=== PATIENT | female | born 1980 | race Caucasian/White ===

== ENCOUNTER → 2018-11-12 18:53 | Emergency (ER) | payer OTHER ==
--- NOTE | 2018-11-12 19:14 | ED ---
Psychiatric Complaint - HPI Summary HPI Summary: This patient is a 38 year old F brought in by ambulance to ED with a chief complaint of intermittent panic attacks since last month. The patients most recent episode occurred while she was driving about 1 hour ago. The patient states it feels like a panic attack except her previous episodes usually go away , but this one lasted longer than usual. The CC is described as intermittent. The patient rates the pain 0/10 in severity. Symptoms aggravated by nothing. Symptoms alleviated by nothing. Patient reports light-headedness, numbness and tingling in her arms and legs, near-syncope, SOB, and slight sore throat (a couple days ago, now resolved). Patient denies edema, cough, and fever. PMHx of panic attacks (since the age of 17). She does not take any medications. - History Of Current Complaint Time Seen by Provider: 11/12/18 19:01 Hx Obtained From: Patient Onset/Duration: Sudden Onset, Lasting Minutes, Resolved Timing: Intermittent Episode Lasting Severity Currently: None Character: Anxious Aggravating Factor(s): Nothing Alleviating Factor(s): Nothing Related History: Positive For: Prior Psychiatric Issues - panic attacks Has Suicidal: Denies: Thoughts Has Homicidal: Denies: Thoughts - Allergies/Home Medications Allergies/Adverse Reactions: Allergies Allergy/AdvReac Type Severity Reaction Status Date / Time No Known Allergies Allergy Verified 11/12/18 19:01 Home Medications: Home Medications NK [No Home Medications Reported] 11/12/18 [History Confirmed 11/12/18] PMH/Surg Hx/FS Hx/Imm Hx Endocrine/Hematology History: Denies: Hx Diabetes Cardiovascular History: Denies: Hx Coronary Artery Disease, Hx Hypertension Psychiatric History: Reports: Other Psychiatric Issues/Disorders - panic attacks Infectious Disease History: No Infectious Disease History: Denies: Traveled Outside the [place] in Last 30 Days - Family History Known Family History: Positive: Cardiac Disease - father - Social History Alcohol Use: None Substance Use Type: Reports: None Hx Tobacco Use: No Smoking Status (MU): Never Smoked Tobacco Review of Systems Negative: Fever Positive: Sore Throat - now resolved Positive: Shortness Of Breath. Negative: Cough Negative: Edema Neurological: Other - light-headedness, numbness and tingling in arms and legs, near-syncope Positive: Numbness Positive: Anxious, Other - panic attacks All Other Systems Reviewed And Are Negative: Yes Physical Exam - Summary Physical Exam Summary: VITAL SIGNS: Reviewed. GENERAL: Patient is a well-developed and nourished FEMALE who is lying comfortable in the stretcher. Patient is not in any acute respiratory distress. HEAD AND FACE: No signs of trauma. No ecchymosis, hematomas or skull depressions. No sinus tenderness. EYES: PERRLA, EOMI x 2, No injected conjunctiva, no nystagmus. EARS: Hearing grossly intact. Ear canals and tympanic membranes are within normal limits. MOUTH: Oropharynx within normal limits. NECK: Supple, trachea is midline, no adenopathy, no JVD, no carotid bruit, no c- spine tenderness, neck with full ROM. CHEST: Symmetric, no tenderness at palpation LUNGS: Clear to auscultation bilaterally. No wheezing or crackles. CVS: Regular rate and rhythm, S1 and S2 present, no murmurs or gallops appreciated. ABDOMEN: Soft, non-tender. No signs of distention. No rebound no guarding, and no masses palpated. Bowel sounds are normal. EXTREMITIES: FROM in all major joints, no edema, no cyanosis or clubbing. NEURO: Alert and oriented x 3. No acute neurological deficits. Speech is normal and follows commands. SKIN: Dry and warm PSYCH: Patient is anxious. Triage Information Reviewed: Yes Vital Signs On Initial Exam: Initial Vitals Temp Pulse Resp BP Pulse Ox 99.3 F 86 18 118/93 100 11/12/18 18:58 11/12/18 18:58 11/12/18 18:58 11/12/18 18:58 11/12/18 18:58 Vital Signs Reviewed: Yes Diagnostics - Vital Signs Vital Signs Temp Pulse Resp BP Pulse Ox 11/12/18 18:58 99.3 F 86 18 118/93 100 - Laboratory Result Diagrams: 11/12/18 19:38 11/12/18 19:38 Lab Statement: Any lab studies that have been ordered have been reviewed, and results considered in the medical decision making process. - EKG 1928 Cardiac Rate: NL - 85 BPM EKG Rhythm: Sinus Rhythm Summary of EKG Findings: NSR at 85 BPM, no ST elevations, and normal axis. Re-Evaluation - Re-Evaluation First Eval Re-Evaluation Time: 20:52 Comment: Discussed results with the patient and plan for discharge. Patient understands and agrees with this plan. Course/Dx - Course Assessment/Plan: This patient is a 38 year old F brought in by ambulance to ED with a chief complaint of intermittent panic attacks since last month. The patients most recent episode occurred while she was driving about 1 hour ago. The patient states it feels like a panic attack except her previous episodes usually go away, but this one lasted longer than usual. The CC is described as intermittent. The patient rates the pain 0/10 in severity. Symptoms aggravated by nothing. Symptoms alleviated by nothing. Patient reports lightheadedness, numbness and tingling in her arms and legs, near-syncope, SOB, and slight sore throat (a couple days ago, now resolved). Patient denies edema, cough, and fever. PMHx of panic attacks (since the age of 17). She does not take any medications. Blood Work without any significant abnormality except for glucose of 1 5. Troponin is 0.00. Beta hCG is negative. EKG is a normal sinus rhythm without any ST elevations. I believe that the patient had another panic attack as her usual however this was lasting a little bit longer. Patient declined any medications for anxiety. I discussed all the findings and test results with the patient. Patient was instructed to return to the emergency room immediately if any of the symptoms return worsens. Plan of care was discussed with the patient and understands and agrees. All questions were answered at patient satisfaction. There were no further complaints or concerns. Lung exam before discharge: CTA B/L. Good air exchange. No wheezing or crackles heard. CVS : S1 and S2 present. No murmurs appreciated. Patient is alert and oriented x 3. Patient is hemodynamically stable. Patient will be discharged home with follow up PCP in the next 2-3 days - Differential Dx/Clinical Impression Differential Diagnosis/HQI/PQRI: Positive: Anxiety Provider Diagnosis: Anxiety Discharge - Sign-Out/Discharge Documenting (check all that apply): Patient Departure - discharge Patient Received Moderate/Deep Sedation with Procedure: No - Discharge Plan Condition: Stable Disposition: HOME Patient Education Materials: Anxiety (ED) Referrals: [facility] [Outside] - 3 Days Additional Instructions: FOLLOW UP WITH YOUR PRIMARY CARE PHYSICIAN IN 3 DAYS. RETURN TO THE ED FOR ANY WORSENING OR NEW SYMPTOMS. - Billing Disposition and Condition Condition: STABLE Disposition: Home - Attestation Statements Document Initiated by Scribe: Yes Documenting Scribe: Cruz Rees Provider For Whom Scribe is Documenting (Include Credential): Han Portillo MD Scribe Attestation: I, Cruz Rees, scribed for Han Portillo MD on 11/12/18 at 2116. Scribe Documentation Reviewed: Yes Provider Attestation: The documentation as recorded by the Cruz tariq accurately reflects the service I personally performed and the decisions made by me, Han Portillo MD Status of Scribe Document: Viewed
[2018-11-12 19:46] LABS: Urine Appearance Clear; Urine Bacteria Absent (Absent); Urine Bilirubin Negative (Negative); Urine Blood 1+ (Negative); Urine Color Straw; Urine Glucose Negative (Negative); Urine Ketones 1+ (Negative); Urine Nitrite Negative (Negative); Urine Protein Negative (Negative); Urine Red Blood Cell Trace(0-2/hpf) (Absent); Urine Specific Gravity 1.002 (1.010-1.030); Urine Squamous Epithelial Cell Present (Absent); Urine Urobilinogen Negative (Negative); Urine White Blood Cell Absent (Absent)
[2018-11-12 19:49] LABS: ABS Basophils 0.1 10^3/ul (0-0.2); ABS Eosinophils 0.1 10^3/ul (0-0.6); ABS Lymphocytes 1.6 10^3/ul (1.0-4.8); ABS Monocytes 0.5 10^3/ul (0-0.8); ABS Neutrophils 6.6 10^3/ul (1.5-7.7); Eosinophil % 1.6 %; Hematocrit 43 % (35-47); Hemoglobin 14.5 g/dL (12.0-16.0); Lymphocyte % 18.4 %; Mean Corpuscular HGB Conc 34 g/dL (31-36); Mean Corpuscular Hemoglobin 29 pg (27-31); Mean Corpuscular Volume 85 fL (80-97); Mean Platelet Volume 7.8 fL (7.4-10.4); Nucleated Red Blood Cells % 0.1; Platelet Count 296 10^3/uL (150-450); Red Blood Count 5.02 10^6 /uL (3.70-4.87); Red Cell Distribution Width 13 % (10.5-15)
[2018-11-12 20:01] LABS: ALT 13 U/L (7-52); AST 14 U/L (13-39); Albumin 4.9 g/dL (3.2-5.2); Albumin/Globulin Ratio 1.9 (1-3); Alkaline Phosphatase 28 U/L (34-104); Anion Gap 9 mmol/L (2-11); BUN/Creatinine Ratio 12.5 (8-20); Blood Urea Nitrogen 9 mg/dL (6-24); CO2 Carbon Dioxide 22 mmol/L (22-32); Chloride 108 mmol/L (101-111); EGFR African American 109.1 (>60); EGFR Non-African American 90.2 (>60); Globulin 2.6 g/dL (2-4); Glucose 105 mg/dL (70-100); Potassium 3.6 mmol/L (3.5-5.0); Sodium 139 mmol/L (135-145); Total Protein 7.5 g/dL (6.4-8.9)
[2018-11-12 20:07] LABS: HCG Pregnancy < 0.60 mIU/mL
[2018-11-12 20:49] LABS: Troponin I 0.01 ng/mL (<0.04)
[2018-11-12 21:02] VITALS: BP 122/76
== END | disposition home or self-care (01) ==
LOC: ED 18:53
DX: F41.9 Anxiety disorder, unspecified (principal)
CPT/HCPCS: 36415; 80053; 81003; 81015; 84484; 84702; 85025; 93005; 99282